=== PATIENT | male | born 1985 | race Hispanic/Latino ===

== ENCOUNTER 2024-05-04 10:29 | Emergency (ER) | payer OTHER, SELFPAY ==
[2024-05-04 10:40] VITALS: BP 134/67; PULSE 88; RESP 18; TEMP 36.2; O2SAT 96
[2024-05-04 10:47] LABS: Glucose Point of Care 231 mg/dl (65-105)
[2024-05-04 11:03] VITALS: BP 126/86; PULSE 90; RESP 14; TEMP 36.6; O2SAT 97
--- NOTE | 2024-05-04 11:11 | ED.RECABL ---
HPI - Recheck/Abnormal Lab/Rx General Chief Complaint: Recheck/Abnormal Lab/Rx Stated Complaint: I'M A DIABETIC AND HAVENT HAD MEDS IN 5 MO Time Seen by Provider: 05/04/24 11:00 Source: patient Mode of arrival: ambulatory Limitations: no limitations History of Present Illness HPI narrative: This is a 38-year-old male who presents to the ED for chief complaint of not feeling well. Reports that he has had a left-sided sinus congestion for the past 5 years. Patient reports that he has not taken his diabetic medications about 5 months. States that he stopped going to the doctor. States that he was told by someone that he can treat his diabetes with home remedies. Patient reports that blood sugars in the 500 is normal for him. He is more concerned about his left-sided sinus congestion today. Related Data Allergies Allergy/AdvReac Type Severity Reaction Status Date / Time No Known Allergies Allergy Verified 05/04/24 10:44 Review of Systems Review of Systems: All systems as dictated in HPI Exam Narrative: GENERAL: Well-appearing, well-nourished, and in no acute distress. HEAD: Normocephalic, atraumatic. EYES: PERRLA and EOMI. ENT: Nares clear, no rhinorrhea or epistaxis. Mucous membranes moist. Oropharynx without tonsillar hypertrophy exudate or other lesions. NECK: Supple. No adenopathy or masses. CHEST: No respiratory distress. Clear to auscultation. No wheezes rales or rhonchi HEART: Regular rate and rhythm. No murmur heard. Normal peripheral pulses. ABDOMEN: Soft, nontender, nondistended, normal active bowel sounds. MSK: Normal range of motion. No edema. SKIN: Warm, dry, no rash. NEURO: Alert and oriented x4. No focal deficits. PSYCH: Normal mood and affect. Course Vital Signs Vital signs: Vital Signs Temperature 97.2 F L 05/04/24 10:40 Pulse Rate 88 05/04/24 10:40 Respiratory Rate 18 05/04/24 10:40 Blood Pressure 134/67 05/04/24 10:40 Pulse Oximetry 96 05/04/24 10:40 Oxygen Delivery Room Air 05/04/24 10:40 Temperature 97.8 F 05/04/24 12:00 Pulse Rate 68 05/04/24 12:00 Respiratory Rate 16 05/04/24 12:00 Blood Pressure 138/78 05/04/24 12:00 Pulse Oximetry 100 05/04/24 12:00 Oxygen Delivery Room Air 05/04/24 10:40 MDM - Recheck/Abnormal Lab/Rx MDM Narrative Medical decision making narrative: This is a 38-year-old male who presents to the ED for chronic sinus congestion and feeling unwell. Vitals are normal. Exam does show some sinus congestion but otherwise is benign. Lab work shows elevated blood sugar in the 230s but is otherwise unremarkable. UA shows 2+ glucose but no infection. Viral swabs are negative. CBC unremarkable. Lengthy discussion with patient regarding taking his diabetic medications. Doxycycline given for possible bacterial sinusitis. Pt will be discharged in stable condition. Return precautions given and supportive measures discussed. Pt is understanding and agreeable with plan for discharge and follow-up with PCP. Lab Data 05/04/24 11:21 05/04/24 11:21 Labs: Lab Results 05/04/24 05/04/24 Range/Units 10:39 11:21 WBC 5.2 (4.5-10.0) K/mm3 RBC 4.24 L (4.6-6.20) M/mm3 Hgb 13.5 L (14.0-18.0) g/dL Hct 40.5 L (42.0-52.0) % MCV 95.5 (80-100) fl MCH 31.8 (26-34) pg MCHC 33.3 (32-36) g/dl RDW 12.3 (11.5-14.5) % Plt Count 207 (150-375) k/mm3 MPV 9.1 (7.4-10.4) fl Immature Gran % (Auto) 0.2 (0-0.5) % Neut % (Auto) 54.9 (45.5-73.1) % Lymph % (Auto) 29.4 (18.3-44.2) % [place] % (Auto) 9.0 H (2.6-8.5) % Eos % (Auto) 5.5 H (0-4.4) % Baso % (Auto) 1.0 (0.2-1.2) % Lymph # (Auto) 1.54 (0.9-3.2) K/mm3 [place] # (Auto) 0.5 (0.1-0.6) K/mm3 Eos # (Auto) 0.3 (0-0.3) K/mm3 Baso # (Auto) 0.1 (0.0-0.1) K/mm3 Abs Immat Gran (auto) 0.01 (0.00-0.031) K/mm3 Absolute Neuts (auto) 2.9 (1.3-6.7) K/mm3 Absolute Nucleated RBC 0.000 (0.0-0.012) K/mm3 Nucleated RBC % 0.0 (0.0-0.2) % Sodium 141 (137-145) mmol/L Potassium 3.9 (3.4-5.0) mmol/L Chloride 106 (98-107) mmol/L Carbon Dioxide 24 (22-30) mmol/L Anion Gap 11 (4-12) mmol/L BUN 10 (9-20) mg/dL Creatinine 0.50 L (0.7-1.3) mg/dL Estim Creat Clear Calc 187 ml/min Estimated GFR > 60 (59 - ) Glucose 208 H (65-110) mg/dL POC Capillary Glucose 231 H (65-105) mg/dl Calcium 8.8 (8.4-10.2) mg/dL Total Bilirubin 0.3 (0.2-1.3) mg/dL AST 131 H (17-59) U/L ALT 105 H (6-50) U/L Alkaline Phosphatase 77 (38-126) U/L Total Protein 8.0 (6.3-8.2) g/dL Albumin 4.5 (3.5-5.1) g/dL Urine Color Yellow (Yellow) Urine Appearance Clear (Clear) Urine pH 5.5 (5.0-9.0) Ur Specific [place] 1.004 (1.001-1.035) Urine Protein Negative (Negative) mg/dL Urine Glucose (UA) 2+ H (Negative) mg/dL Urine Ketones Negative (Negative) mg/dL Ur Blood (Man) Negative (Negative) Urine Nitrate Negative (Negative) Urine Bilirubin Negative (Negative) Urine Urobilinogen 0.2 (<2.0) mg/dL Leukocyte Esterase Rfl Negative (Negative) CARMEN/UL Influenza A (RT-PCR) Negative (Negative) Influenza B (RT-PCR) Negative (Negative) RSV (RT-PCR) Negative (Negative) SARS-CoV-2 RNA (RT-PCR) Negative (Negative) Discharge Plan Discharge Clinical Impression: Sinusitis, Hyperglycemia Patient Disposition: Home, Self-Care Condition: Stable Instructions: Antibiotic Form Additional Instructions: Exam and workup today are reassuring overall. Please take your metformin as prescribed follow-up with PCP for your diabetes. If you do not manage your diabetes well, this will have serious health effects including severe disease kidney disease. If you have any new or worsening symptoms please return to the ER for further evaluation. Patient Language: [place] Citizen Prescriptions: New doxycycline hyclate 100 mg capsule 100 mg PO BID 7 Days Qty: 14 0RF metformin 500 mg tablet 500 mg PO BID Qty: 60 0RF Follow-up/Referrals: Jay Ray MD [Physician] - Time of Disposition: 11:14
[2024-05-04 11:32] LABS: Basophils Absolute Auto 0.1 K/mm3 (0.0-0.1); Eosinophils Absolute Auto 0.3 K/mm3 (0-0.3); Eosinophils Percent Auto 5.5 % (0-4.4); Hematocrit 40.5 % (42.0-52.0); Hemoglobin 13.5 g/dL (14.0-18.0); Immature Granulocyte Absolute 0.01 K/mm3 (0.00-0.031); Immature Granulocyte Percent A 0.2 % (0-0.5); Lymphocytes Absolute Auto 1.54 K/mm3 (0.9-3.2); Lymphocytes Percent Auto 29.4 % (18.3-44.2); Mean Corpuscular HGB Conc 33.3 g/dl (32-36); Mean Corpuscular Hemoglobin 31.8 pg (26-34); Mean Corpuscular Volume 95.5 fl (80-100); Mean Platelet Volume 9.1 fl (7.4-10.4); Monocytes Absolute Auto 0.5 K/mm3 (0.1-0.6); Neutrophils Absolute Auto 2.9 K/mm3 (1.3-6.7); Neutrophils Percent Auto 54.9 % (45.5-73.1); Platelet Count Result 207 k/mm3 (150-375); Red Blood Count 4.24 M/mm3 (4.6-6.20); Red Cell Distribution Width 12.3 % (11.5-14.5); White Blood Count 5.2 K/mm3 (4.5-10.0)
[2024-05-04 11:37] LABS: Add Urine Microscopic? NO; Appearance Urine Clear (Clear); Bilirubin Urine Negative (Negative); Blood Urine Negative (Negative); Color Urine Yellow (Yellow); Glucose Urine UA 2+ mg/dL (Negative); Ketones Urine Negative (Negative); Leukocyte Esterase Ur Negative LEU/UL (Negative); Nitrate Urine Negative (Negative); Protein Urine Negative (Negative); Specific Grav Ur 1.004 (1.001-1.035); Urobilinogen Urine 0.2 mg/dL (<2.0); pH Urine 5.5 (5.0-9.0)
[2024-05-04 11:45] LABS: Alanine Aminotransferase 105 U/L (6-50); Albumin Level 4.5 g/dL (3.5-5.1); Alkaline Phosphatase 77 U/L (38-126); Anion Gap 11 mmol/L (4-12); Aspartate Amino Transferase 131 U/L (17-59); Bilirubin,Total 0.3 mg/dL (0.2-1.3); Blood Urea Nitrogen 10 mg/dL (9-20); Calcium 8.8 mg/dL (8.4-10.2); Carbon Dioxide 24 mmol/L (22-30); Chloride 106 mmol/L (98-107); Estimated CRCL calculation 187 ml/min; Estimated Glomerular Filt Rate > 60; Glucose 208 mg/dL (65-110); Potassium 3.9 mmol/L (3.4-5.0); Sodium 141 mmol/L (137-145)
[2024-05-04] MEDS: metFORMIN HCL XR 500 MG TAB.SR.24H PO (11:53)
[2024-05-04 12:00] VITALS: BP 138/78; PULSE 68; RESP 16; TEMP 36.6; O2SAT 100
[2024-05-04 12:13] LABS: Influenza A QL RT-PCR Negative (Negative); Influenza B QL RT-PCR Negative (Negative); RSV RNA, RT-PCR Negative (Negative); SARS-CoV-2 RNA PCR Negative (Negative)
== END 2024-05-04 12:56 | disposition home or self-care (01) ==
PROVIDERS: Emergency Provider Physician Assistant
DX: J32.9 Chronic sinusitis, unspecified (principal); E11.65 Type 2 diabetes mellitus with hyperglycemia; Z20.822 Contact with and (suspected) exposure to COVID-19
CPT/HCPCS: 36415; 80053; 81003; 82948; 85025; 87637; 99283; A9270

== ENCOUNTER 2025-01-04 08:26 | Emergency (ER) | payer OTHER, SELFPAY ==
[2025-01-04] VITALS (22 sets, daily range): BP systolic 125–140; BP diastolic 91–101; PULSE 111–121; RESP 16–18; TEMP 36.8; O2SAT 97–99
--- OUTSIDE RECORDS SUMMARY | 2025-01-04 08:31 | XMS_ITS | Clinical Summary ---
Author Organization [facility] Address [address] [place] [address] Phone Care Team Providers Care Gem Setter Name Role Phone Unavailable Primary Care Provider Unavailabl e Allergies No known active allergies Medications oxyCODONE-acetam inophen (PERCOCET) 5-325 mg tablet Take 1-2 Tablet by mouth every 6 hours as needed for Pain. Max Daily Amount: 8 Tablet 30 Tablet 0 03/14/2015 Active Active Problems No known active problems Social History Tobacco Use Types Packs/Day Years Used Date Smoking Tobacco: Never Alcohol Use Standard Drinks/Week Comments Yes 12 (1 standard drink = 0.6 oz pu re alcohol) Sex and Gender Information Value Date Recorded Sex Assigned at Not on file Legal Sex Male 3:41 PM CDT Gender Identity Not on file Sexual Orientation Not on file Last Filed Vital Signs Vital Sign Reading Time Taken Comments Blood Pressure 111/71 03/14/2015 5:14 PM CDT Pulse 76 03/14/2015 5:14 PM CDT Temperature 36.4 C (97.6 F) 03/14/2015 3:47 PM CDT Respiratory Rate 18 03/14/2015 5:14 PM CDT Oxygen Saturation 97% 03/14/2015 5:14 PM CDT Inhaled Oxygen Concentration - - Weight 99.8 kg (220 lb) 03/14/2015 3:47 PM CDT Height 182.9 cm (6') 03/14/2015 3:47 PM CDT Body Mass Index 29.84 03/14/2015 3:47 PM CDT Plan of Treatment Health Maintenance Due Date Last Done Comments HPV VACCINES (1 - Male 3-dos e series) 12/24/1999 HEPATITIS B VACCINES (1 of 3 - 19+ 3-dose series) 12/24/2003 INFLUENZA VACCINE (#1) 2024 DTAP/TDAP/TD VACCINES (3 - T d or Tdap) 12/04/2026 12/04/2016, 03/14/2015, 01/14/2014
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
[2025-01-04 10:04] LABS: Strep Group A RT-PCR NOT DETECTED (Negative)
[2025-01-04 10:15] LABS: Influenza A QL RT-PCR Negative (Negative); Influenza B QL RT-PCR Negative (Negative); RSV RNA, RT-PCR Negative (Negative); SARS-CoV-2 RNA PCR Negative (Negative)
[2025-01-04] MEDS: ONDANSETRON HCL ODT 4 MG TABLET PO (10:28)
[2025-01-04] MEDS: HYDROcodone/acetaminophen (*CRX) 5-325 MG TABLET 1 TAB PO (10:42)
[2025-01-04] MEDS: LACTATED RINGERS 1,000 ML 999 ML IV CONT (10:48)
[2025-01-04] MEDS: KETOROLAC 15 MG/ML VIAL (*BKC) IV PUSH (10:49)
--- NOTE | 2025-01-04 11:15 | PC.NURSE ---
Report given to Razia Keating RN, all questions answered.
== END 2025-01-04 11:38 | disposition home or self-care (01) ==
PROVIDERS: Emergency Provider Emergency Medicine
DX: J36 Peritonsillar abscess (principal); Z20.822 Contact with and (suspected) exposure to COVID-19
CPT/HCPCS: 42700; 87637; 87651; 96361; 96374; 99284; A9270; J1885; J7120